=== PATIENT | male | born 1990 | race Caucasian/White ===

== ENCOUNTER 2018-06-20 19:32 | Emergency (ER) | payer OTHER ==
[2018-06-20 23:46] VITALS: BP 125/77
[2018-06-20] MEDS ORDERED: IBUPROFEN PO ONE ×2 (23:48→23:51)
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
== END 2018-06-21 04:19 | disposition home or self-care (01) ==
LOC: ED 19:32
DX: K02.9 Dental caries, unspecified (principal); F17.200 Nicotine dependence, unspecified, uncomplicated
CPT/HCPCS: 99282

== ENCOUNTER 2018-07-14 14:30 | Emergency (ER) | payer SELFPAY ==
[2018-07-14 17:20] VITALS: BP 101/48
--- NOTE | 2018-07-14 17:21 | Emergency Department Report ---
Blank Doc - Documentation Documentation: 28 y o male presents to ed states he had a reaction after taking 2 tabs of nas dryl earlier today no sxs now ACC eval
== END 2018-07-14 19:13 | disposition left against medical advice (07) ==
LOC: ED 14:30
DX: R11.0 Nausea (principal); F41.9 Anxiety disorder, unspecified; Z53.21 Procedure and treatment not carried out due to patient leaving prior to being seen by health care provider